=== PATIENT | male | born 1965 | race Caucasian/White ===

== ENCOUNTER 2023-12-03 15:11 | Emergency (ER) | payer OTHER, SELFPAY ==
--- NOTE | ~2023-12-03 | XR_ITS ---
EXAMINATION: XR chest 2V DATE: 12/03/2023 15:37 INDICATION: Cough. Wheezing. TECHNIQUE: Frontal and lateral views of the chest were obtained. COMPARISON: None. FINDINGS: There is no pneumonia, pleural effusion, or pneumothorax. The heart size is normal. There i s mild chronic anterior wedging of multiple vertebral bodies. IMPRESSION: 1. No acute cardiopulmonary disease. Reviewed, dictated and finalized at location A.
[2023-12-03 15:16] VITALS: BP 143/91; PULSE 80; RESP 16; TEMP 36.6; O2SAT 98
[2023-12-03 15:21] VITALS: BP 143/91; PULSE 80; RESP 16; TEMP 36.6; O2SAT 98
--- NOTE | 2023-12-03 15:23 | ED.GENADULT ---
HPI - General Adult General Chief complaint: Upper Respiratory Infection Stated complaint: Cough Source: patient, RN notes reviewed and old records reviewed Mode of arrival: ambulatory Limitations: no limitations History of Present Illness HPI narrative: 8-year-old male patient presents to [facility] with complaints cough, congestion, myalgia, wheezing, shortness of breath that started around November 12. Patient call primary care doctor and was given a Z-Eliud. Patient states he is not improving. Patient also using albuterol inhaler with little relief. Related Data Home Medications Medication Instructions Recorded Confirmed nortriptyline 10 mg capsule 20 mg PO DAILY 02/13/20 12/03/23 pravastatin 40 mg tablet 40 mg PO DAILY 02/13/20 12/03/23 sumatriptan succinate 100 mg tablet 1 tablet PO DIRECTED 02/13/20 12/03/23 albuterol sulfate 90 mcg/actuation 2 inh inhalation DAILY 12/03/23 12/03/23 aerosol inhaler atorvastatin 20 mg tablet 20 mg PO DAILY 12/03/23 12/03/23 hydrochlorothiazide 12.5 mg tablet 12.5 mg PO DAILY 12/03/23 12/03/23 rizatriptan 10 mg tablet mg 12/03/23 Allergies Allergy/AdvReac Type Severity Reaction Status Date / Time codeine Allergy Intermediate Itching Verified 12/03/23 15:21 Review of Systems Constitutional: Constitutional: Reports no additional constitutional complaints, Denies body ache(s), Denies chills, Reports fatigue, Denies fever(s) and Denies headache(s) Eyes: Eyes: Reports no additional eye complaints and Denies blurry vision ENT: Reports system reviewed and no additional complaints, except as documented, Denies vertigo, Denies dizziness, Denies ear discharge, Denies otalgia, Denies facial pain, Denies headache(s), Reports nasal congestion, Denies nasal discharge, Denies sinus pain, Reports sinus pressure and Denies sore throat Cardiovascular: Cardiovascular: Reports no additional cardiovascular complaints, Denies chest pain, Denies chest pain at rest, Denies rapid heart rate and Reports dyspnea Respiratory: Respiratory: Reports no additional respiratory complaints, Reports chest congestion, Reports cough, Denies pain on inspiration, Denies pain with cough, Denies dyspnea and Reports wheezing Gastrointestinal: Gastrointestinal: Denies abdominal pain, Denies diarrhea, Denies nausea and Denies vomiting Integumentary/Breasts: Skin/Breast: Denies rash Neurologic: Reports system reviewed and no additional complaints, except as documented, Denies vertigo, Denies dizziness and Denies headache(s) Endocrine: Endocrine: Denies fatigue PMFSH Past Medical History Medical History History of basal cell carcinoma (BCC) Overweight (BMI 25.0-29.9) Family History Family History Mother Family history of malignant neoplasm Social History Social History Smoking status: Never smoker Tobacco type: smokeless tobacco Smokeless tobacco user: chewing tobacco Alcohol intake: current Comments At the time of my signature, I reviewed and agree with the nursing past medical, surgical, social, and family history. There is no relevant family history pertinent to the patient complaint. Exam Const: General: cooperative, no acute distress, ill appearing acutely and well nourished Nutritional Appearance: well nourished Orientation/consciousness: patient oriented x3 Limitations: no limitations HENMT: Head: normal to inspection and normocephalic Ears: external ears normal, TM's normal bilaterally, EAC's normal and mastoids normal Face/Nose/Sinus: Normal nasal mucous membranes and turbinates present, normal facial exam and sinuses nontender Face and sinus: normal facial exam Mouth: Yes Normal oral and palatal mucosa present, Yes oropharynx normal and Yes moist mucous membranes Throat: tonsils normal, uvula midline, normal tonsils, no pe
== END 2023-12-03 15:57 | disposition home or self-care (01) ==
PROVIDERS: Emergency Provider Registered Nurse; PCP Physician Assistant
DX: J20.9 Acute bronchitis, unspecified (principal); F17.220 Nicotine dependence, chewing tobacco, uncomplicated; Z85.828 Personal history of other malignant neoplasm of skin
CPT/HCPCS: 71046; 99213; G0463